=== PATIENT | female | born 1965 | race Caucasian/White ===

== ENCOUNTER 2017-08-28 02:34 | Emergency (ER) | payer MEDICAID, OTHER ==
[2017-08-28] MEDS: HYDROCODONE/APAP (5/325) TAB PO (03:31)
== END 2017-08-28 04:21 | disposition home or self-care (01) ==
LOC: FTE 02:34
DX: M54.6 Pain in thoracic spine (principal)
CPT/HCPCS: 72128; 99284-25

== ENCOUNTER → 2017-12-10 | Outpatient (CLI) | payer MEDICAID | END | disposition home or self-care (01) | LOC: RAD 14:38 | DX: E83.39 Other disorders of phosphorus metabolism (principal) | CPT/HCPCS: 71046 ==

== ENCOUNTER → 2017-12-22 | Outpatient (CLI) | payer MEDICAID | END | disposition home or self-care (01) | LOC: NUC 12:47 | DX: E83.39 Other disorders of phosphorus metabolism (principal) | CPT/HCPCS: 78306; A9503 ==